=== PATIENT | female | born 1975 | race African-American/Black ===

== ENCOUNTER 2018-09-11 15:19 | Emergency (ER) | payer OTHER ==
[~2018-09-11] VITALS: Wt 105.0 kg
--- NOTE | 2018-09-11 19:31 | ERD ---
ER Documentation Chief Complaint Chief Complaint ANXIETY AND TACHYPNEA WITH NUMBNESS AND TINGLING FOR THE PAST FEW HRS HPI 43-year-old female presents with sensation of numbness and paresthesias of the face for the last few hours. She has a history of chronic paresthesias of her hands and feet that she states is due to her back problems. She has a history of lupus. She was told she may have CHF recently. She is awaiting cardiology evaluation as her primary doctor recently referred her. She denies any history of possible rapid breathing or anxiety. She denies any recent illnesses patient has any chest pain or shortness of breath. She states that she has multiple medical problems including low blood pressure low pulse of uncertain etiology. She takes Topamax for her history of partial seizures as well as migraines. She just recently tapered off long-term prednisone overdose of 10 mg for her lupus. She states that she was seen at another hospital this weekend and diagnosed with low potassium low sodium. ROS All systems reviewed and are negative except as per history of present illness. Allergies Allergies: Coded Allergies: ceftriaxone (Verified Allergy, Intermediate, RASHES,HIVES,SOB, 09/11/18) PMhx/Soc History of Surgery: Yes (c-sec x 2, tonsilectomy, hysterectomy) Hx Respiratory Disorders: Yes (asthma, seanonal allergies) Hx Cardiac Disorders: No Hx Psychiatric Problems: Yes (anxiety) Hx Alcohol Use: No Hx Substance Use: No Hx Tobacco Use: No Smoking Status: Never smoker FmHx Family History: No diabetes, No coronary disease, No other Physical Exam Vitals Vital Signs Date Temp Pulse Resp B/P (MAP) Pulse Ox O2 O2 Flow FiO2 Time Delivery Rate 09/11/18 98.3 75 18 126/73 99 18:42 (90) 09/11/18 98.1 79 20 151/84 99 15:25 (106) Physical Exam Const: No acute distress Head: Atraumatic Eyes: Normal Conjunctiva ENT: Normal External Ears, Nose and Mouth. Neck: Full range of motion. No meningismus. Resp: Clear to auscultation bilaterally Cardio: Regular rate and rhythm, no murmurs Abd: Soft, non tender, non distended. Normal bowel sounds Skin: No petechiae or rashes Back: No midline or flank tenderness Ext: No cyanosis, or edema Neur: Awake and alert Psych: Normal Mood and Affect Result Diagram: 09/11/18 1754 09/11/18 1754 Results 24 hrs Laboratory Tests Test 09/11/18 17:54 White Blood Count 9.9 10^3/ul Red Blood Count 5.18 10^6/ul Hemoglobin 14.0 g/dl Hematocrit 43.2 % Mean Corpuscular Volume 83.4 fl Mean Corpuscular Hemoglobin 27.0 pg Mean Corpuscular Hemoglobin Concent 32.4 g/dl Red Cell Distribution Width 14.4 % Platelet Count 448 10^3/UL Mean Platelet Volume 11.5 fl Immature Granulocytes % 0.300 % Neutrophils % 62.5 % Lymphocytes % 28.9 % Monocytes % 5.4 % Eosinophils % 2.5 % Basophils % 0.4 % Nucleated Red Blood Cells % 0.0 /100WBC Immature Granulocytes # 0.030 10^3/ul Neutrophils # 6.2 10^3/ul Lymphocytes # 2.9 10^3/ul Monocytes # 0.5 10^3/ul Eosinophils # 0.3 10^3/ul Basophils # 0.0 10^3/ul Nucleated Red Blood Cells # 0.0 10^3/ul Sodium Level 140 mmol/L Potassium Level 4.6 mmol/L Chloride Level 110 mmol/L Carbon Dioxide Level 22 mmol/L Anion Gap 8 Blood Urea Nitrogen 9 mg/dl Creatinine 0.83 mg/dl Est Glomerular Filtrat Rate mL/min > 60 mL/min Glucose Level 96 mg/dl Calcium Level 9.7 mg/dl B-Type Natriuretic Peptide 31 PG/ML Procedures/MDM CBC shows no acute abnormalities. CMP is normal. BNP is normal. EKG: Rate/Rhythm: Normal Sinus Rhythm rate of 69 QRS, ST, T-waves: No changes consistent w/ acute ischemia Impression: No evidence of ischemia or arrhythmia He had an CT C-spine show degenerative changes of the cervical spine without acute abnormalities. Patient presents with paresthesias of the face and extremities of uncertain etiology. She has no signs of neurologic meningitis, additional concerning signs or symptoms. She has no complaints of chest pain, shortness of breath, deficits. She does have a specialist appointment pending an outpatient primary care follow-up. She is advised to follow-up with primary care doctor in week she will be given copies of her lab reports. She is advised to return for chest pain, shortness breath, fevers, deficits, new worsening symptoms or primary doctor. The patient was stable with no new complaints during the ER course. Clinically, there is no current evidence to suggest meningitis, sepsis, acute abdomen, pneumonia, stroke, acute coronary syndrome, pulmonary embolism, aortic dissection or any other emergent condition appearing to require further evaluation or hospitalization. Patient counseled regarding my diagnostic impression and care plan. Prior to discharge all questions answered. Pt agrees with treatment plan and understands strict return precautions. Pt is instructed to follow up with primary care provider within 24- 48 hours. Precautionary instructions provided including instructions to return to the ER if not improving or for any worsening or changing symptoms or concerns. Disclaimer: Inadvertent spelling and grammatical errors are likely due to EHR/dictation software use and do not reflect on the overall quality of patient care. Also, please note that the electronic time recorded on this note does not necessarily reflect the actual time of the patient encounter. Departure Diagnosis: Primary Impression: Facial paresthesia Additional Impression: Distal paresthesia Condition: Stable Patient Instructions: Paraesthesias Additional Instructions: Examination showed no acute abnormalities today. Uncertain cause of symptoms. Recommend primary care follow-up and specialist evaluation as scheduled. Recommend rheumatology for lupus and additional medical conditions. Recheck otherwise for new worsening symptoms or with primary care doctor SELENA LANDIS MD September 11, 2018 19:31
[2018-09-11 21:56] VITALS: BP 134/84; PULSE 70; RESP 19
== END 2018-09-11 22:10 | disposition home or self-care (01) ==
LOC: FTE 15:19
DX: R20.2 Paresthesia of skin (principal); J45.909 Unspecified asthma, uncomplicated; R06.82 Tachypnea, not elsewhere classified
CPT/HCPCS: 36415; 70450; 72125; 80048; 83880; 85025; 93005